=== PATIENT | male | born 1985 | race Caucasian/White ===

== ENCOUNTER 2017-08-25 14:55 | Emergency (ER) | payer OTHER ==
[~2017-08-25] VITALS: Ht 185.4 cm; Wt 79.4 kg
[~2017-08-25 14:55] MED LIST: CEPH500 PO; FLUO10 PO; HYDACE5 PO; IBUP600 PO; ONDA4 PO; OXYACE5T PO; SULTRIDS PO
== END 2017-08-25 16:23 | disposition home or self-care (01) ==
LOC: ER 14:55
DX: H61.23 Impacted cerumen, bilateral (principal); F17.200 Nicotine dependence, unspecified, uncomplicated
CPT/HCPCS: 69210; 99282

== ENCOUNTER 2018-09-22 06:42 | Day surgery (SDC) | payer OTHER ==
[~2018-09-22] VITALS: Ht 185.4 cm; Wt 87.2 kg
--- NOTE | 2018-09-22 12:17 | NUR ---
09/22/18 1217 Kaley Mckeon USED TO SOAK GELFOAM
--- NOTE | 2018-09-22 16:57 | NUR ---
09/22/18 1657 Avril Beck PT DIDNT HAVE RETCHING OR EMESIS ANYTIM T/O RECOVERY. APPEARED IN NO DISTRESS AND TERRANCE AT BEDSIDE. PT DRANK H20,JUICE AND DIET PEPSI ALSO HAD COOKIES AND MARSHALL CRACKERS. BUBBLE DSG C/D/I AND GIVEN BACITRACIN PACKETS AND 4X4'S W/INSTRUCTIONS FOR USE.
== END 2018-09-22 12:45 | disposition home or self-care (01) ==
LOC: ORSCSDS 06:42
PROVIDERS: Otolaryngology
PROC: 09Q80ZZ Repair Left Tympanic Membrane, Open Approach (ICD-10-PCS; principal; 2018-09-22 08:15)
DX: H74.22 Discontinuity and dislocation of left ear ossicles (principal); H90.12 Conductive hearing loss, unilateral, left ear, with unrestricted hearing on the contralateral side; F17.210 Nicotine dependence, cigarettes, uncomplicated
CPT/HCPCS: A9270-GY; J0171; J1100; J1885; J2250; J2405; J2704; J2710; J2765; J3010; J7120

== ENCOUNTER 2019-04-05 10:01 | Emergency (ER) | payer OTHER ==
[~2019-04-05] VITALS: Ht 185.4 cm; Wt 94.3 kg
[2019-04-05 11:10] LABS: BASOPHILS ABSOLUTE AUTO 0.06 K/mm3 (0.00-0.23); BASOPHILS PERCENT AUTO 1 % (0-2); EOSINOPHILS ABSOLUTE AUTO 0.38 K/mm3 (0.00-0.68); EOSINOPHILS PERCENT AUTO 3 % (0-6); Hematocrit 41.5 % (37.0-53.0); Hemoglobin 14.2 g/dL (13.5-17.5); IMMATURE GRAN ABSOLUTE AUTO 0.02 K/mm3 (0.00-0.10); IMMATURE GRAN PERCENT AUTO 0 % (0-1); LYMPHOCYTES ABSOLUTE AUTO 1.34 K/mm3 (0.84-5.20); LYMPHOCYTES PERCENT AUTO 12 % (21-46); MONOCYTES ABSOLUTE AUTO 0.94 K/mm3 (0.16-1.47); MONOCYTES PERCENT AUTO 8 % (4-13); Mean Corpuscular HGB 30.9 pg (26.0-34.0); Mean Corpuscular HGB Conc 34.2 g/dL (31.5-36.5); Mean Corpuscular Volume 90 fL (80-100); Mean Platelet Volume 9.9 fL (9.1-12.4); NEUTROPHILS ABSOLUTE AUTO 8.39 K/mm3 (1.96-9.15); NEUTROPHILS PERCENT AUTO 76 % (41-73); Platelet Count 230 K/mm3 (150-400); RDW Coefficient Variation 11.9 % (11.7-14.2); RDW Standard Deviation 39.1 fL (35.1-46.3); White Blood Cell Count 11.13 K/mm3 (4.00-11.30)
[2019-04-05 11:28] LABS: Anion Gap 6 mmol/L (6-16); Blood Urea Nitrogen 12 mg/dL (8-24); Bun/Creatinine Ratio 14.3 (12.0-20.0); CO2, Blood 25 mmol/L (21-32); Calcium, Blood 8.7 mg/dL (8.5-10.1); Chloride, Blood 108 mmol/L (98-108); Creatinine, Blood 0.84 mg/dL (0.60-1.20); Glomerular Filtration Rate >60 (60-); Glucose, Blood 129 mg/dL (70-99); Potassium, Blood 3.8 mmol/L (3.5-5.5); Sodium, Blood 139 mmol/L (136-145)
[2019-04-05] MEDS ORDERED: Cleocin HCl300 MG PO (12:40)
[2019-04-05] MEDS ORDERED: Ultram50 MG PO (12:40)
== END 2019-04-05 13:15 | disposition home or self-care (01) ==
LOC: ER 10:01
PROVIDERS: Emergency Medicine
DX: L03.115 Cellulitis of right lower limb (principal); L02.611 Cutaneous abscess of right foot; Z87.891 Personal history of nicotine dependence
CPT/HCPCS: 36415; 73701; 80048; 85025; 96365-59; 96375-59; 99284-25; J3010; Q9967

== ENCOUNTER 2019-04-06 09:53 | Emergency (ER) | payer OTHER ==
[~2019-04-06] VITALS: Ht 185.4 cm; Wt 94.3 kg
[~2019-04-06 09:53] MED LIST changes: +Cleocin HCl300 MG PO; +Ultram50 MG PO
== END 2019-04-06 11:15 | disposition home or self-care (01) ==
LOC: ER 09:53
DX: L03.115 Cellulitis of right lower limb (principal); L02.611 Cutaneous abscess of right foot; Z87.891 Personal history of nicotine dependence
CPT/HCPCS: 99282

== ENCOUNTER 2020-08-23 05:18 | Emergency (ER) | payer OTHER ==
[~2020-08-23] VITALS: Ht 185.4 cm; Wt 124.7 kg
[2020-08-23 06:46] LABS: BASOPHILS ABSOLUTE AUTO 0.07 K/mm3 (0.00-0.23); BASOPHILS PERCENT AUTO 1 % (0-2); EOSINOPHILS ABSOLUTE AUTO 0.11 K/mm3 (0.00-0.68); EOSINOPHILS PERCENT AUTO 1 % (0-6); Hematocrit 41.3 % (37.0-53.0); IMMATURE GRAN ABSOLUTE AUTO 0.03 K/mm3 (0.00-0.10); IMMATURE GRAN PERCENT AUTO 0 % (0-1); LYMPHOCYTES ABSOLUTE AUTO 3.02 K/mm3 (0.84-5.20); LYMPHOCYTES PERCENT AUTO 28 % (21-46); MONOCYTES ABSOLUTE AUTO 0.81 K/mm3 (0.16-1.47); MONOCYTES PERCENT AUTO 8 % (4-13); Mean Corpuscular HGB 31.5 pg (26.0-34.0); Mean Corpuscular HGB Conc 33.9 g/dL (31.5-36.5); Mean Corpuscular Volume 93 fL (80-100); Mean Platelet Volume 10.3 fL (9.1-12.4); NEUTROPHILS ABSOLUTE AUTO 6.67 K/mm3 (1.96-9.15); NEUTROPHILS PERCENT AUTO 62 % (41-73); Platelet Count 235 K/mm3 (150-400); RDW Coefficient Variation 13.3 % (11.7-14.2); RDW Standard Deviation 45.5 fL (35.1-46.3); Red Blood Cell Count 4.44 M/mm3 (4.30-5.90); White Blood Cell Count 10.71 K/mm3 (4.00-11.30)
[2020-08-23 07:06] LABS: Alanine Aminotransfer (ALT/SGP 68 U/L (12-78); Alk Phos 81 U/L (50-136); Anion Gap 7 mmol/L (6-16); Aspartate Aminotrans (AST/SGOT 41 U/L (12-37); Bilirubin, Total 0.8 mg/dL (0.1-1.0); Blood Urea Nitrogen 19 mg/dL (8-24); Bun/Creatinine Ratio 16.1 (12.0-20.0); CO2, Blood 21 mmol/L (21-32); Calcium, Blood 8.2 mg/dL (8.5-10.1); Chloride, Blood 109 mmol/L (98-108); Creatinine, Blood 1.18 mg/dL (0.60-1.20); Glomerular Filtration Rate >60 (60-); Glucose, Blood 106 mg/dL (70-99); Potassium, Blood 4.5 mmol/L (3.5-5.5); Sodium, Blood 137 mmol/L (136-145)
[2020-08-23] MEDS ORDERED: FURO40 PO (08:43)
== END 2020-08-23 09:08 | disposition home or self-care (01) ==
LOC: ER 05:18
PROVIDERS: Emergency Medicine
DX: J81.1 Chronic pulmonary edema (principal); F15.10 Other stimulant abuse, uncomplicated; F17.210 Nicotine dependence, cigarettes, uncomplicated
CPT/HCPCS: 36415; 71046; 80053; 83880; 85025; 93005; 93010; 96374; 96375; 99284-25; J1940; J2060

== ENCOUNTER 2020-09-03 11:49 | Inpatient (IN) | payer OTHER ==
[~2020-09-03] VITALS: Ht 185.4 cm; Wt 114.7 kg
[~2020-09-03 11:49] MED LIST changes: +FURO40 PO
[2020-09-03 12:16] LABS: BASOPHILS ABSOLUTE AUTO 0.11 K/mm3 (0.00-0.23); BASOPHILS PERCENT AUTO 1 % (0-2); EOSINOPHILS ABSOLUTE AUTO 0.07 K/mm3 (0.00-0.68); EOSINOPHILS PERCENT AUTO 1 % (0-6); Hematocrit 44.9 % (37.0-53.0); IMMATURE GRAN ABSOLUTE AUTO 0.04 K/mm3 (0.00-0.10); IMMATURE GRAN PERCENT AUTO 0 % (0-1); LYMPHOCYTES PERCENT AUTO 22 % (21-46); MONOCYTES ABSOLUTE AUTO 1.06 K/mm3 (0.16-1.47); MONOCYTES PERCENT AUTO 8 % (4-13); Mean Corpuscular HGB 30.4 pg (26.0-34.0); Mean Corpuscular HGB Conc 33.4 g/dL (31.5-36.5); Mean Corpuscular Volume 91 fL (80-100); Mean Platelet Volume 10.3 fL (9.1-12.4); NEUTROPHILS ABSOLUTE AUTO 9.14 K/mm3 (1.96-9.15); NEUTROPHILS PERCENT AUTO 68 % (41-73); Platelet Count 239 K/mm3 (150-400); RDW Coefficient Variation 12.8 % (11.7-14.2); RDW Standard Deviation 42.9 fL (35.1-46.3); Red Blood Cell Count 4.93 M/mm3 (4.30-5.90); White Blood Cell Count 13.42 K/mm3 (4.00-11.30)
[2020-09-03 12:37] LABS: Alanine Aminotransfer (ALT/SGP 98 U/L (12-78); Albumin, Blood 3.4 g/dL (3.4-5.0); Alk Phos 77 U/L (50-136); Anion Gap 8 mmol/L (6-16); Aspartate Aminotrans (AST/SGOT 78 U/L (12-37); Bilirubin, Total 1.5 mg/dL (0.1-1.0); Blood Urea Nitrogen 22 mg/dL (8-24); Bun/Creatinine Ratio 19.3 (12.0-20.0); CO2, Blood 20 mmol/L (21-32); Calcium, Blood 8.6 mg/dL (8.5-10.1); Chloride, Blood 106 mmol/L (98-108); Creatinine, Blood 1.14 mg/dL (0.60-1.20); Globulin, Blood 3.3 g/dL (2.2-4.0); Glomerular Filtration Rate >60 (60-); Glucose, Blood 90 mg/dL (70-99); Potassium, Blood 4.4 mmol/L (3.5-5.5); Sodium, Blood 134 mmol/L (136-145); Total Protein, Blood 6.7 g/dL (6.4-8.2); Troponin I 0.035 ng/mL (0.000-0.040)
[2020-09-03 18:07] LABS: Source, Urine Clean Catch
[2020-09-03 18:14] LABS: Bilirubin, Urine Neg (Neg); Blood, Urine Neg (Neg); Glucose Qualitative, Urine Neg (Neg); Ketones, Urine Neg (Neg); Leukocyte Esterase, Urine Neg (Neg); Nitrite, Urine Neg (Neg); Protein, Urine Neg (Neg); Urobilinogen, Urine NORM (Normal)
--- NOTE | 2020-09-03 18:18 | NUR ---
SHIFT SUMMARY; ADMIT FROM ER AT 1730. A/A/OX4, AMBULATES FROM ER GURNEY TO BED. REPORTS INCREASED SOB OVER THE LAST FEW DAYS, DENIES AT THIS TIME. BLE TRACE EDEMA. DINNER TRAY PROVIDED. WILL CONTINUE TO MONITOR AND TREAT UNTIL CHANGE OF SHIFT.
[2020-09-03 18:31] LABS: U Amphetamine Screen DETECTED; U Barbituate Screen Not Detected; U Benzodiazapine Screen Not Detected; U Buprenorphine Screen Not Detected; U Cannabinoids Screen Not Detected; U Cocaine Screen Not Detected; U Methadone Screen Not Detected; U Methamphetamine Screen DETECTED; U Opiates Screen Not Detected; U Oxycodone Screen Not Detected; U Phencyclidine Screen Not Detected; U Propoxyphene Screen Not Detected
[2020-09-03 18:32] LABS: Appearance, Urine Clear (Clear); Color, Urine Pale Yellow (P-Yellow)
[2020-09-04 03:56] LABS: BASOPHILS ABSOLUTE AUTO 0.13 K/mm3 (0.00-0.23); BASOPHILS PERCENT AUTO 1 % (0-2); EOSINOPHILS ABSOLUTE AUTO 0.16 K/mm3 (0.00-0.68); EOSINOPHILS PERCENT AUTO 1 % (0-6); Hematocrit 43.9 % (37.0-53.0); Hemoglobin 14.8 g/dL (13.5-17.5); IMMATURE GRAN ABSOLUTE AUTO 0.04 K/mm3 (0.00-0.10); IMMATURE GRAN PERCENT AUTO 0 % (0-1); LYMPHOCYTES ABSOLUTE AUTO 3.66 K/mm3 (0.84-5.20); LYMPHOCYTES PERCENT AUTO 29 % (21-46); MONOCYTES ABSOLUTE AUTO 0.96 K/mm3 (0.16-1.47); MONOCYTES PERCENT AUTO 8 % (4-13); Mean Corpuscular HGB 30.5 pg (26.0-34.0); Mean Corpuscular HGB Conc 33.7 g/dL (31.5-36.5); Mean Corpuscular Volume 91 fL (80-100); Mean Platelet Volume 10.6 fL (9.1-12.4); NEUTROPHILS ABSOLUTE AUTO 7.53 K/mm3 (1.96-9.15); NEUTROPHILS PERCENT AUTO 60 % (41-73); Platelet Count 249 K/mm3 (150-400); RDW Coefficient Variation 12.9 % (11.7-14.2); RDW Standard Deviation 42.5 fL (35.1-46.3); Red Blood Cell Count 4.85 M/mm3 (4.30-5.90); White Blood Cell Count 12.48 K/mm3 (4.00-11.30)
[2020-09-04 04:21] LABS: Alanine Aminotransfer (ALT/SGP 106 U/L (12-78); Albumin, Blood 3.3 g/dL (3.4-5.0); Alk Phos 71 U/L (50-136); Anion Gap 9 mmol/L (6-16); Aspartate Aminotrans (AST/SGOT 70 U/L (12-37); Bilirubin, Total 1.3 mg/dL (0.1-1.0); Blood Urea Nitrogen 27 mg/dL (8-24); Bun/Creatinine Ratio 21.1 (12.0-20.0); CO2, Blood 24 mmol/L (21-32); Calcium, Blood 8.3 mg/dL (8.5-10.1); Chloride, Blood 103 mmol/L (98-108); Creatinine, Blood 1.28 mg/dL (0.60-1.20); Globulin, Blood 3.3 g/dL (2.2-4.0); Glomerular Filtration Rate >60 (60-); Glucose, Blood 93 mg/dL (70-99); Potassium, Blood 3.7 mmol/L (3.5-5.5); Sodium, Blood 136 mmol/L (136-145); Total Protein, Blood 6.6 g/dL (6.4-8.2); Troponin I 0.047 ng/mL (0.000-0.040)
--- NOTE | 2020-09-04 05:57 | NUR ---
SHIFT SUMMARY PT REMAINED STABLE ON ROOM AIR, SATING ABOVE 90%. CONNECTED TO TELEMETRY, READING SINUS TACHYCARDIA 100-105 PER [facility] ASSISTANT REPORT. PT REPORTED CHEST PAIN UPON INSPIRATION AND SOB, HE STATES THIS WAS HAPPENING FOR THE 3 WEEKS PRIOR TO ADMISSION. AIR SOUNDS ARE DIMINISHED THROUGH ALL LUNG MCDOWELL, OCCASSIONAL COUGH THAT IS PRODUCING THICK SPUTUM WITH BLOOD MIXED IN. VSS. NO ACUTE CHANGES. WILL CONTINUE TO MONITOR.
--- NOTE | 2020-09-04 09:44 | NUR ---
echocardiogram completed.
[2020-09-04 13:12] LABS: SARS-Cov-2 (COVID-19) PCR, MMC NEGATIVE (NEGATIVE)
[2020-09-04 13:52] LABS: International Normalized Ratio 1.22
--- NOTE | 2020-09-04 15:02 | NUR ---
REPORT GIVEN TO THE [facility] FOR [place] TRANSFER. HEPARIN INFUSING AT TIME OF TRANSFER AT 13UNIT/KG.
[2020-09-06 00:10] LABS: HBSAG SCREEN Negative (Negative); HEP A AB, IGM Negative (Negative); HEP B CORE AB, IGM Negative (Negative); HEP C VIRUS AB <0.1 (0.0-0.9)
== END 2020-09-04 14:57 | disposition short-term general hospital (02) | DRG 292 ==
LOC: ER 11:49 → PCU 16:33
PROVIDERS: Emergency Medicine; Internal Medicine Cardiovascular Disease; Nurse Practitioner Acute Care; ADMIT Internal Medicine
DX: I50.21 Acute systolic (congestive) heart failure (principal); Q23.1 Congenital insufficiency of aortic valve; I42.0 Dilated cardiomyopathy; Z20.822 Contact with and (suspected) exposure to COVID-19; I51.3 Intracardiac thrombosis, not elsewhere classified; I77.810 Thoracic aortic ectasia; R79.89 Other specified abnormal findings of blood chemistry; D72.829 Elevated white blood cell count, unspecified; F15.10 Other stimulant abuse, uncomplicated; F10.10 Alcohol abuse, uncomplicated; E66.9 Obesity, unspecified; Z68.33 Body mass index [BMI] 33.0-33.9, adult; I27.20 Pulmonary hypertension, unspecified; F32.9 Major depressive disorder, single episode, unspecified; G43.909 Migraine, unspecified, not intractable, without status migrainosus; H90.2 Conductive hearing loss, unspecified; Z79.82 Long term (current) use of aspirin; Z79.899 Other long term (current) drug therapy; F17.290 Nicotine dependence, other tobacco product, uncomplicated
CPT/HCPCS: 36415; 71046; 74176; 80053; 80074; 81003; 83880; 84484; 85025; 85610; 85730; 93005; 93010; 94762; 96374; 99285-25; A9270; C8929; C9113; J1644; J1650; J1940; J2405; J7030; J7050; Q9957; U0004

== ENCOUNTER 2020-12-08 19:00 | Emergency (ER) | payer OTHER ==
[~2020-12-08] VITALS: Ht 185.4 cm; Wt 104.3 kg
[2020-12-08 19:31] LABS: BASOPHILS ABSOLUTE AUTO 0.03 K/mm3 (0.00-0.23); BASOPHILS PERCENT AUTO 0 % (0-2); EOSINOPHILS ABSOLUTE AUTO 0.06 K/mm3 (0.00-0.68); EOSINOPHILS PERCENT AUTO 1 % (0-6); Hematocrit 35.7 % (37.0-53.0); Hemoglobin 11.7 g/dL (13.5-17.5); IMMATURE GRAN ABSOLUTE AUTO 0.03 K/mm3 (0.00-0.10); IMMATURE GRAN PERCENT AUTO 0 % (0-1); LYMPHOCYTES PERCENT AUTO 12 % (21-46); MONOCYTES ABSOLUTE AUTO 1.06 K/mm3 (0.16-1.47); MONOCYTES PERCENT AUTO 10 % (4-13); Mean Corpuscular HGB 30.3 pg (26.0-34.0); Mean Corpuscular HGB Conc 32.8 g/dL (31.5-36.5); Mean Corpuscular Volume 93 fL (80-100); Mean Platelet Volume 9.4 fL (9.1-12.4); NEUTROPHILS ABSOLUTE AUTO 7.81 K/mm3 (1.96-9.15); NEUTROPHILS PERCENT AUTO 77 % (41-73); Platelet Count 228 K/mm3 (150-400); RDW Coefficient Variation 15.3 % (11.7-14.2); RDW Standard Deviation 51.8 fL (35.1-46.3); Red Blood Cell Count 3.86 M/mm3 (4.30-5.90); White Blood Cell Count 10.19 K/mm3 (4.00-11.30)
[2020-12-08] MEDS ORDERED: ATOR40TA PO (19:40)
[2020-12-08] MEDS ORDERED: ENTRESTO 49 MG1 EAC7 PO (19:40)
[2020-12-08] MEDS ORDERED: JANTOVEN5 M2 PO (19:41)
[2020-12-08] MEDS ORDERED: METO100ER PO (19:41)
[2020-12-08] MEDS ORDERED: SPIRONOLACTONE25 MG PO (19:41)
[2020-12-08 19:54] LABS: Alanine Aminotransfer (ALT/SGP 32 U/L (12-78); Albumin/Globulin Ratio 0.8 (0.8-1.8); Alk Phos 79 U/L (50-136); Anion Gap 5 mmol/L (6-16); Aspartate Aminotrans (AST/SGOT 13 U/L (12-37); Blood Urea Nitrogen 19 mg/dL (8-24); CO2, Blood 27 mmol/L (21-32); Calcium, Blood 8.6 mg/dL (8.5-10.1); Chloride, Blood 103 mmol/L (98-108); Creatinine, Blood 1.27 mg/dL (0.60-1.20); Glomerular Filtration Rate >60 (60-); Glucose, Blood 128 mg/dL (70-99); Sodium, Blood 135 mmol/L (136-145); Troponin I <0.015 ng/mL (0.000-0.040)
[2020-12-08 20:09] LABS: International Normalized Ratio 2.06; Prothrombin Time Results 21.4 Sec (9.7-11.5)
== END 2020-12-08 21:12 | disposition home or self-care (01) ==
LOC: ER 19:00
PROVIDERS: Physician Assistant
DX: B34.9 Viral infection, unspecified (principal); F17.290 Nicotine dependence, other tobacco product, uncomplicated; Z20.822 Contact with and (suspected) exposure to COVID-19; Z79.899 Other long term (current) drug therapy; Z79.01 Long term (current) use of anticoagulants
CPT/HCPCS: 36415; 51798; 71046; 80053; 83880; 84484; 85025; 85610; 85730; 93005; 93010; 99284-25

== ENCOUNTER 2023-11-19 07:38 | Emergency (ER) | payer OTHER ==
[~2023-11-19] VITALS: Ht 185.4 cm; Wt 77.1 kg
[~2023-11-19 07:38] MED LIST changes: +ATOR40TA PO; +ENTRESTO 49 MG PO; +ENTRESTO 49 MG1 EAC7 PO; +JANTOVEN5 M2 PO; +METO100ER PO; +SPIRONOLACTONE25 MG PO; +WARF5 PO
[2023-11-19 07:45] VITALS: BP 123/77
[2023-11-19] MEDS ORDERED: Ondansetron HCl 2 MG / ML 2ML Vial IV PRN (07:50)
[2023-11-19 08:06] LABS: BASOPHILS ABSOLUTE AUTO 0.06 K/mm3 (0.00-0.23); BASOPHILS PERCENT AUTO 1 % (0-2); EOSINOPHILS ABSOLUTE AUTO 0.16 K/mm3 (0.00-0.68); EOSINOPHILS PERCENT AUTO 3 % (0-6); Hematocrit 37.7 % (37.0-53.0); Hemoglobin 12.7 g/dL (13.5-17.5); IMMATURE GRAN ABSOLUTE AUTO 0.01 K/mm3 (0.00-0.10); IMMATURE GRAN PERCENT AUTO 0 % (0-1); LYMPHOCYTES ABSOLUTE AUTO 1.35 K/mm3 (0.84-5.20); LYMPHOCYTES PERCENT AUTO 24 % (21-46); MONOCYTES ABSOLUTE AUTO 0.48 K/mm3 (0.16-1.47); MONOCYTES PERCENT AUTO 9 % (4-13); Mean Corpuscular HGB 31.3 pg (26.0-34.0); Mean Corpuscular HGB Conc 33.7 g/dL (31.5-36.5); Mean Corpuscular Volume 93 fL (80-100); Mean Platelet Volume 10.3 fL (9.1-12.4); NEUTROPHILS ABSOLUTE AUTO 3.55 K/mm3 (1.96-9.15); NEUTROPHILS PERCENT AUTO 63 % (41-73); Platelet Count 218 K/mm3 (150-400); RDW Coefficient Variation 12.9 % (11.7-14.2); Red Blood Cell Count 4.06 M/mm3 (4.30-5.90); White Blood Cell Count 5.61 K/mm3 (4.00-11.30)
[2023-11-19 08:25] LABS: Albumin, Blood 3.6 g/dL (3.4-5.0); Albumin/Globulin Ratio 1.2 (0.8-1.8); Bun/Creatinine Ratio 21.4 (12.0-20.0); Calcium, Blood 8.4 mg/dL (8.5-10.1); Creatinine, Blood 0.89 mg/dL (0.60-1.20); Potassium, Blood 4.5 mmol/L (3.5-5.5); Total Protein, Blood 6.6 g/dL (6.4-8.2)
== END 2023-11-19 09:01 | disposition home or self-care (01) ==
LOC: ER 07:38
PROVIDERS: Emergency Medicine
DX: R07.9 Chest pain, unspecified (principal); Z87.891 Personal history of nicotine dependence; Z79.01 Long term (current) use of anticoagulants; Z79.899 Other long term (current) drug therapy
CPT/HCPCS: 71046; 80053; 84484; 85025; 93005; 93010; 96374; 99285-25; J2405

== ENCOUNTER 2023-11-20 16:33 | Observation (INO) | payer OTHER ==
[~2023-11-20] VITALS: Ht 185.4 cm; Wt 83.0 kg
[2023-11-20 16:35] VITALS: BP 144/75
[2023-11-20 21:30] LABS: BASOPHILS ABSOLUTE AUTO 0.06 K/mm3 (0.00-0.23); BASOPHILS PERCENT AUTO 1 % (0-2); EOSINOPHILS ABSOLUTE AUTO 0.17 K/mm3 (0.00-0.68); EOSINOPHILS PERCENT AUTO 3 % (0-6); Hematocrit 37.4 % (37.0-53.0); Hemoglobin 12.6 g/dL (13.5-17.5); IMMATURE GRAN PERCENT AUTO 0 % (0-1); LYMPHOCYTES ABSOLUTE AUTO 2.26 K/mm3 (0.84-5.20); LYMPHOCYTES PERCENT AUTO 36 % (21-46); MONOCYTES ABSOLUTE AUTO 0.45 K/mm3 (0.16-1.47); MONOCYTES PERCENT AUTO 7 % (4-13); Mean Corpuscular HGB 31.5 pg (26.0-34.0); Mean Corpuscular HGB Conc 33.7 g/dL (31.5-36.5); Mean Corpuscular Volume 94 fL (80-100); Mean Platelet Volume 10.2 fL (9.1-12.4); NEUTROPHILS PERCENT AUTO 53 % (41-73); Platelet Count 193 K/mm3 (150-400); RDW Coefficient Variation 12.8 % (11.7-14.2); RDW Standard Deviation 43.9 fL (35.1-46.3); White Blood Cell Count 6.24 K/mm3 (4.00-11.30)
[2023-11-20 21:36] LABS: Acetaminophen, Random <2.0 ug/mL (10.0-30.0); Alanine Aminotransfer (ALT/SGP 38 U/L (12-78); Albumin, Blood 3.7 g/dL (3.4-5.0); Albumin/Globulin Ratio 1.2 (0.8-1.8); Alk Phos 68 U/L (50-136); Anion Gap 10 mmol/L (3-11); Aspartate Aminotrans (AST/SGOT 18 U/L (12-37); Bilirubin, Total 1.6 mg/dL (0.1-1.0); Blood Urea Nitrogen 16 mg/dL (8-24); Bun/Creatinine Ratio 16.9 (12.0-20.0); CO2, Blood 25 mmol/L (21-32); Calcium, Blood 8.5 mg/dL (8.5-10.1); Chloride, Blood 110 mmol/L (98-108); Creatinine, Blood 0.95 mg/dL (0.60-1.20); Ethanol (Alcohol), Blood, Med <3 mg/dL; Glomerular Filtration Rate 104 (60-); Glucose, Blood 81 mg/dL (70-99); Potassium, Blood 3.9 mmol/L (3.5-5.5); Salicylate <1.7 mg/dL (2.8-20.0); Sodium, Blood 141 mmol/L (136-145); Total Protein, Blood 6.7 g/dL (6.4-8.2)
[2023-11-20] MEDS ORDERED: Ondansetron HCl 2 MG / ML 2ML Vial IV ONE (21:45)
[2023-11-20 22:12] LABS: Source, Urine Clean Catch
[2023-11-20 22:19] LABS: Influenza A, PCR NEGATIVE (NEGATIVE); Influenza B, PCR NEGATIVE (NEGATIVE); Resp Syncytial Virus, PCR NEGATIVE (NEGATIVE); SARS-Cov-2 (COVID-19) PCR, MMC NEGATIVE (NEGATIVE)
[2023-11-20 22:22] LABS: Appearance, Urine Clear (Clear); Bilirubin, Urine Neg (Neg); Blood, Urine Neg (Neg); Color, Urine Yellow (P-Yellow); Glucose Qualitative, Urine Neg (Neg); Ketones, Urine 1+ (Neg); Leukocyte Esterase, Urine Neg (Neg); Nitrite, Urine Neg (Neg); Protein, Urine 1+ (Neg); Specific Gravity, Urine 1.025 (1.003-1.022); Urobilinogen, Urine NORM (Normal)
[2023-11-20 22:36] LABS: U Cannabinoids Screen DETECTED
[2023-11-20 22:37] LABS: U Amphetamine Screen Not Detected; U Barbituate Screen Not Detected; U Benzodiazapine Screen Not Detected; U Buprenorphine Screen Not Detected; U Cocaine Screen Not Detected; U Methadone Screen Not Detected; U Methamphetamine Screen Not Detected; U Opiates Screen Not Detected; U Oxycodone Screen Not Detected; U Phencyclidine Screen Not Detected
[2023-11-20] MEDS ORDERED: LORazepam 1 MG Tab PO ONE (22:50)
== END 2023-11-21 05:57 | disposition home or self-care (01) ==
LOC: ER 16:33 → EOR 16:34
PROVIDERS: ADMIT Student in an Organized Health Care Education/Training Program
DX: R45.851 Suicidal ideations (principal); R07.89 Other chest pain; I10 Essential (primary) hypertension; Z95.2 Presence of prosthetic heart valve; Z87.891 Personal history of nicotine dependence; Z79.01 Long term (current) use of anticoagulants; Z79.899 Other long term (current) drug therapy
CPT/HCPCS: 0241U; 80053; 80320; 84484; 85025; 93005; 93010; 99285-25; G0378; G0480

== ENCOUNTER 2024-10-04 12:21 | Emergency (ER) | payer OTHER ==
[~2024-10-04] VITALS: Ht 185.4 cm; Wt 81.7 kg
[2024-10-04 13:26] VITALS: BP 109/70
[2024-10-04 14:34] LABS: BASOPHILS ABSOLUTE AUTO 0.02 K/mm3 (0.00-0.23); BASOPHILS PERCENT AUTO 0 % (0-2); EOSINOPHILS ABSOLUTE AUTO 0.00 K/mm3 (0.00-0.68); EOSINOPHILS PERCENT AUTO 0 % (0-6); Hematocrit 40.9 % (37.0-53.0); Hemoglobin 13.9 g/dL (13.5-17.5); IMMATURE GRAN ABSOLUTE AUTO 0.06 K/mm3 (0.00-0.10); IMMATURE GRAN PERCENT AUTO 0 % (0-1); LYMPHOCYTES ABSOLUTE AUTO 0.74 K/mm3 (0.84-5.20); LYMPHOCYTES PERCENT AUTO 5 % (21-46); MONOCYTES ABSOLUTE AUTO 0.80 K/mm3 (0.16-1.47); MONOCYTES PERCENT AUTO 5 % (4-13); Mean Corpuscular HGB Conc 34.0 g/dL (31.5-36.5); Mean Corpuscular Volume 94 fL (80-100); NEUTROPHILS ABSOLUTE AUTO 13.94 K/mm3 (1.96-9.15); NEUTROPHILS PERCENT AUTO 90 % (41-73); NRBC ABSOLUTE 0.00 K/mm3 (0.00-0.02); NRBC Auto 0.0 /100 WBC (0.0-0.2); Platelet Count 176 K/mm3 (150-400); RDW Coefficient Variation 11.9 % (11.7-14.2); RDW Standard Deviation 41.2 fL (35.1-46.3)
[2024-10-04 14:48] LABS: Prothrombin Time Results 27.6 Sec (9.7-11.5)
[2024-10-04] MEDS ORDERED: Bactrim Ds Tab1 EACH PO (14:59)
[2024-10-04] MEDS ORDERED: CEPH500 PO (14:59)
[2024-10-04 15:02] LABS: Alanine Aminotransfer (ALT/SGP 26.0 U/L (12-78); Albumin, Blood 3.5 g/dL (3.4-5.0); Albumin/Globulin Ratio 0.9 (0.8-1.8); Anion Gap 10.0 mmol/L (3-11); Aspartate Aminotrans (AST/SGOT 24.0 U/L (12-37); Bilirubin, Total 1.5 mg/dL (0.1-1.0); Blood Urea Nitrogen 15.0 mg/dL (8-24); CO2, Blood 25.0 mmol/L (21-32); Calcium, Blood 8.7 mg/dL (8.5-10.1); Chloride, Blood 100.0 mmol/L (98-108); Creatinine, Blood 0.95 mg/dL (0.60-1.20); Globulin, Blood 3.7 g/dL (2.2-4.0); Glucose, Blood 111.0 mg/dL (70-99); Potassium, Blood 3.9 mmol/L (3.5-5.5); Sodium, Blood 131.0 mmol/L (136-145); Total Protein, Blood 7.2 g/dL (6.4-8.2)
[2024-10-05] MEDS ORDERED: JANTOVEN4 M2 PO (10:56)
[2024-10-05] MEDS ORDERED: ESTR2 PO (10:57)
[2024-10-05] MEDS ORDERED: ALDACTONE100 MG PO (10:57)
== END 2024-10-04 15:04 | disposition home or self-care (01) ==
LOC: ER 12:21
PROVIDERS: Physician Assistant
DX: L03.115 Cellulitis of right lower limb (principal); F17.290 Nicotine dependence, other tobacco product, uncomplicated; Z95.2 Presence of prosthetic heart valve; Z79.01 Long term (current) use of anticoagulants; Z79.899 Other long term (current) drug therapy; Z59.89 Other problems related to housing and economic circumstances
CPT/HCPCS: 36415; 80053; 85025; 85610; 93971

== ENCOUNTER 2024-10-05 07:44 | Inpatient (IN) | payer OTHER ==
[~2024-10-05] VITALS: Ht 185.4 cm; Wt 80.8 kg
[~2024-10-05 07:44] MED LIST changes: +Bactrim Ds Tab1 EACH PO
[2024-10-05] MEDS ORDERED: Ketorolac Tromethamine 30mg Vial IV ONE (08:30)
[2024-10-05 10:10] LABS: BASOPHILS ABSOLUTE AUTO 0.04 K/mm3 (0.00-0.23); BASOPHILS PERCENT AUTO 0 % (0-2); EOSINOPHILS ABSOLUTE AUTO 0.01 K/mm3 (0.00-0.68); EOSINOPHILS PERCENT AUTO 0 % (0-6); Hematocrit 37.1 % (37.0-53.0); Hemoglobin 12.8 g/dL (13.5-17.5); IMMATURE GRAN ABSOLUTE AUTO 0.02 K/mm3 (0.00-0.10); IMMATURE GRAN PERCENT AUTO 0 % (0-1); LYMPHOCYTES ABSOLUTE AUTO 0.98 K/mm3 (0.84-5.20); LYMPHOCYTES PERCENT AUTO 10 % (21-46); MONOCYTES ABSOLUTE AUTO 0.96 K/mm3 (0.16-1.47); MONOCYTES PERCENT AUTO 10 % (4-13); Mean Corpuscular HGB Conc 34.5 g/dL (31.5-36.5); Mean Corpuscular Volume 93 fL (80-100); NEUTROPHILS ABSOLUTE AUTO 7.70 K/mm3 (1.96-9.15); NEUTROPHILS PERCENT AUTO 79 % (41-73); NRBC ABSOLUTE 0.00 K/mm3 (0.00-0.02); NRBC Auto 0.0 /100 WBC (0.0-0.2); Platelet Count 162 K/mm3 (150-400); RDW Coefficient Variation 12.0 % (11.7-14.2); RDW Standard Deviation 41.9 fL (35.1-46.3)
[2024-10-05] MEDS ORDERED: CeFAZolin Sodium 1,000 MG in NS 50 ML IV ONE (10:20)
[2024-10-05 10:32] LABS: Alanine Aminotransfer (ALT/SGP 22.0 U/L (12-78); Albumin, Blood 3.2 g/dL (3.4-5.0); Albumin/Globulin Ratio 0.8 (0.8-1.8); Anion Gap 5.0 mmol/L (3-11); Aspartate Aminotrans (AST/SGOT 20.0 U/L (12-37); Bilirubin, Total 0.9 mg/dL (0.1-1.0); Blood Urea Nitrogen 16.0 mg/dL (8-24); C-REACTIVE PROTEIN, EXT RANGE 8.76 mg/dL (0.000-0.300); CO2, Blood 29.0 mmol/L (21-32); Calcium, Blood 8.1 mg/dL (8.5-10.1); Chloride, Blood 105.0 mmol/L (98-108); Creatinine, Blood 1.01 mg/dL (0.60-1.20); Globulin, Blood 3.9 g/dL (2.2-4.0); Glucose, Blood 101.0 mg/dL (70-99); Potassium, Blood 4.0 mmol/L (3.5-5.5); Sodium, Blood 135.0 mmol/L (136-145); Total Protein, Blood 7.1 g/dL (6.4-8.2)
[2024-10-05] MEDS ORDERED: JANTOVEN4 M2 PO (10:56)
[2024-10-05] MEDS ORDERED: ESTR2 PO (10:57)
[2024-10-05] MEDS ORDERED: ALDACTONE100 MG PO (10:57)
[2024-10-05 15:11] LABS: Prothrombin Time Results 28.1 Sec (9.7-11.5)
[2024-10-05] MEDS ORDERED: NS 250 ML IV PRN (16:00)
[2024-10-05] MEDS ORDERED: CeFAZolin Sodium 2,000 MG in NS 100 ML IV SCH (16:00)
[2024-10-05] MEDS ORDERED: HYDROcodone 5-APAP 325 TAB PO PRN (16:45)
[2024-10-05 16:47] VITALS: BP 113/70
[2024-10-05 20:34] VITALS: BP 106/64
[2024-10-05] MEDS ORDERED: Lactobacil 2-S.Thermo-Bifido 1 1 Cap PO SCH (21:00)
[2024-10-05 23:16] VITALS: BP 98/64
--- NOTE | 2024-10-06 03:32 | NUR ---
SHIFT SUMMARY: AOX4. AMBULATING INDEPENDENTLY. REDNESS TO RLE HAS DECREASED AND IS ONLY NOTED TO THE LOWER PART OF THE LEG. TELE SB 50s. RECIEVING IV CEFAZOLIN PER eMAR. NO COMPLAINTS OF PAIN THIS SHIFT. CALL LIGHT IS WITHIN REACH. BED IS LOW AND LOCKED.
[2024-10-06 04:42] VITALS: BP 102/66
[2024-10-06 06:13] LABS: BASOPHILS ABSOLUTE AUTO 0.05 K/mm3 (0.00-0.23); BASOPHILS PERCENT AUTO 1 % (0-2); EOSINOPHILS ABSOLUTE AUTO 0.13 K/mm3 (0.00-0.68); EOSINOPHILS PERCENT AUTO 2 % (0-6); Hematocrit 37.3 % (37.0-53.0); Hemoglobin 12.7 g/dL (13.5-17.5); IMMATURE GRAN ABSOLUTE AUTO 0.02 K/mm3 (0.00-0.10); IMMATURE GRAN PERCENT AUTO 0 % (0-1); LYMPHOCYTES ABSOLUTE AUTO 1.51 K/mm3 (0.84-5.20); LYMPHOCYTES PERCENT AUTO 20 % (21-46); MONOCYTES ABSOLUTE AUTO 1.05 K/mm3 (0.16-1.47); MONOCYTES PERCENT AUTO 14 % (4-13); Mean Corpuscular HGB Conc 34.0 g/dL (31.5-36.5); Mean Corpuscular Volume 94 fL (80-100); NEUTROPHILS ABSOLUTE AUTO 4.73 K/mm3 (1.96-9.15); NEUTROPHILS PERCENT AUTO 63 % (41-73); NRBC ABSOLUTE 0.00 K/mm3 (0.00-0.02); NRBC Auto 0.0 /100 WBC (0.0-0.2); Platelet Count 160 K/mm3 (150-400); RDW Coefficient Variation 12.1 % (11.7-14.2); RDW Standard Deviation 42.0 fL (35.1-46.3)
[2024-10-06 06:25] LABS: Prothrombin Time Results 31.1 Sec (9.7-11.5)
[2024-10-06 06:33] LABS: Anion Gap 4.0 mmol/L (3-11); Blood Urea Nitrogen 19.0 mg/dL (8-24); CO2, Blood 30.0 mmol/L (21-32); Calcium, Blood 8.3 mg/dL (8.5-10.1); Chloride, Blood 106.0 mmol/L (98-108); Creatinine, Blood 0.96 mg/dL (0.60-1.20); Glucose, Blood 97.0 mg/dL (70-99); Potassium, Blood 4.1 mmol/L (3.5-5.5); Sodium, Blood 136.0 mmol/L (136-145)
[2024-10-06 07:19] VITALS: BP 110/65
[2024-10-06 11:44] VITALS: BP 120/72
[2024-10-06 14:43] VITALS: BP 122/73
--- NOTE | 2024-10-06 19:29 | NUR ---
SHIFT SUMMARY CLIENT AOX4. MEDICATION COMPLIANT. REMAIN ON TELE: LAUREL BETANCOURT @ 50. REMAINS ON IV ABT. CELLULITIS SEEMS TO BE HEALING WELL, EVIDENCED MY REDDNESS RECEDING FROM MARKED MARGINS. BED IS IN LOW POSITION AND CALL LIOGHT IS WITHIN REACH
[2024-10-06 19:53] VITALS: BP 105/62
[2024-10-06 23:36] VITALS: BP 112/75
[2024-10-07 04:42] VITALS: BP 105/81
[2024-10-07 05:43] LABS: BASOPHILS ABSOLUTE AUTO 0.06 K/mm3 (0.00-0.23); BASOPHILS PERCENT AUTO 1 % (0-2); EOSINOPHILS ABSOLUTE AUTO 0.18 K/mm3 (0.00-0.68); EOSINOPHILS PERCENT AUTO 3 % (0-6); Hematocrit 38.7 % (37.0-53.0); Hemoglobin 13.2 g/dL (13.5-17.5); IMMATURE GRAN ABSOLUTE AUTO 0.01 K/mm3 (0.00-0.10); IMMATURE GRAN PERCENT AUTO 0 % (0-1); LYMPHOCYTES ABSOLUTE AUTO 1.64 K/mm3 (0.84-5.20); LYMPHOCYTES PERCENT AUTO 23 % (21-46); MONOCYTES ABSOLUTE AUTO 0.99 K/mm3 (0.16-1.47); MONOCYTES PERCENT AUTO 14 % (4-13); Mean Corpuscular HGB Conc 34.1 g/dL (31.5-36.5); Mean Corpuscular Volume 94 fL (80-100); NEUTROPHILS ABSOLUTE AUTO 4.28 K/mm3 (1.96-9.15); NEUTROPHILS PERCENT AUTO 60 % (41-73); NRBC ABSOLUTE 0.00 K/mm3 (0.00-0.02); NRBC Auto 0.0 /100 WBC (0.0-0.2); Platelet Count 168 K/mm3 (150-400); RDW Coefficient Variation 12.1 % (11.7-14.2); RDW Standard Deviation 42.1 fL (35.1-46.3)
[2024-10-07 05:47] LABS: Prothrombin Time Results 22.5 Sec (9.7-11.5)
--- NOTE | 2024-10-07 05:47 | NUR ---
SUMMARY: PT AOX4, IND IN ROOM. CELLULITIS DECREASED INSIDE LINES OF DEMARCATION. DENIES PAIN MEDICATION THIS SHIFT. BED IN LOW POSITION AND CALL LIGHT WITHIN REACH.
[2024-10-07 07:19] VITALS: BP 109/68
[2024-10-07] MEDS ORDERED: Heparin Sodium,Porcine/0.5 NS 500 ML IV SCH (11:10)
[2024-10-07 11:55] VITALS: BP 117/71
[2024-10-07] MEDS ORDERED: Enoxaparin 80 MG/0.8 ML SYR SC SCH (14:00)
[2024-10-07] MEDS ORDERED: HYDR1TAB94 PO (14:58)
[2024-10-07] MEDS ORDERED: ENOX80I SC (14:58)
[2024-10-07] MEDS ORDERED: VISBIOME 112.51 EACH PO (14:59)
[2024-10-07] MEDS ORDERED: CEPH500 PO (15:00)
--- NOTE | 2024-10-07 15:56 | NUR ---
PT DISCHARGED HOME. TRANSPORT ARRANGED. ALL INSTRUCTIONS/RX'S GIVEN TO PT PRIOR TO DISCHARGE. ALL BELONGINGS GIVEN TO PT. TELE AND IV REMOVED AND PT TOLERATED WELL. PT WALKED OUT TO MEET TRANSPORT.
== END 2024-10-07 16:21 | disposition home or self-care (01) | DRG 603 ==
LOC: ER 07:44 → MEDS 07:45 → ERHOLD 07:45 → MEDS 15:40
PROVIDERS: Internal Medicine; Student in an Organized Health Care Education/Training Program; ADMIT Student in an Organized Health Care Education/Training Program
DX: L03.115 Cellulitis of right lower limb (principal); I50.32 Chronic diastolic (congestive) heart failure; F32.A Depression, unspecified; E78.5 Hyperlipidemia, unspecified; F12.90 Cannabis use, unspecified, uncomplicated; F64.0 Transsexualism; F17.290 Nicotine dependence, other tobacco product, uncomplicated; R79.1 Abnormal coagulation profile; Z95.4 Presence of other heart-valve replacement; Z79.01 Long term (current) use of anticoagulants; Z95.2 Presence of prosthetic heart valve; Z79.899 Other long term (current) drug therapy
CPT/HCPCS: 36415; 73590; 80048; 80053; 85025; 85610; 85651; 86140; 87040; 93971; 96365; 96366; 96375; 99284-25; A9270; G0378; J0690; J1650; J1885; J7050